=== PATIENT | male | born 1975 | race Caucasian/White ===

== ENCOUNTER → 2021-04-01 | Outpatient (CLI) | payer OTHER | LOC: LAB 07:52 | PROVIDERS: ATTEND Internal Medicine Pulmonary Disease | DX: Z20.822 Contact with and (suspected) exposure to COVID-19 (principal) | CPT/HCPCS: U0003; U0005 ==

== ENCOUNTER → 2021-04-07 | Outpatient (CLI) | payer OTHER | LOC: LAB 12:59 | PROVIDERS: ATTEND Internal Medicine Pulmonary Disease | DX: Z20.822 Contact with and (suspected) exposure to COVID-19 (principal) | CPT/HCPCS: U0003; U0005 ==

== ENCOUNTER → 2021-08-04 | Outpatient (CLI) | payer OTHER | LOC: LAB 08:31 | PROVIDERS: ATTEND Internal Medicine Pulmonary Disease | DX: R51.9 Headache, unspecified (principal); J02.9 Acute pharyngitis, unspecified; R09.81 Nasal congestion; Z20.822 Contact with and (suspected) exposure to COVID-19 | CPT/HCPCS: U0003; U0005 ==

== ENCOUNTER → 2021-08-06 | Outpatient (CLI) | payer OTHER | LOC: LAB 07:14 | PROVIDERS: ATTEND Internal Medicine Pulmonary Disease | DX: U07.1 COVID-19 (principal) | CPT/HCPCS: U0003; U0005 ==